=== PATIENT | female | born 1995 | race Caucasian/White ===

== ENCOUNTER 2021-03-31 15:10 | Emergency (ER) | payer OTHER ==
[~2021-03-31 15:10] MED LIST: ANUSOL HC SUPP1 SUPP PR; MIRALAX 119 GR119 GM GT
[2021-03-31 16:10] LABS: HEMOGLOBIN 13.4 gm/dl (12.3-15.3); RED BLOOD COUNT 4.5 M/UL (4.00-5.10); WHITE BLOOD COUNT 6.2 K/UL (4.5-11.0)
[2021-03-31 17:19] LABS: BUN/CREATININE RATIO 16 (0-10)
== END 2021-03-31 19:34 | disposition home or self-care (01) ==
LOC: ER1 15:10
PROVIDERS: Emergency Medicine
DX: R55 Syncope and collapse (principal); R07.89 Other chest pain; Z20.822 Contact with and (suspected) exposure to COVID-19
CPT/HCPCS: 71045; 80053; 80307; 81001; 82550; 82553; 83690; 83735; 83874; 83880; 84100; 84439; 84443; 84484; 84703; 85025; 85379; 85610; 85730; 93005; 93242; 99285; U0002